=== PATIENT | male | born 1970 ===

== ENCOUNTER 2018-05-03 05:57 | Day surgery (SDC) | payer OTHER ==
[2018-04-27 11:27] VITALS: BMI 29.0
== END 2018-05-03 06:30 | disposition home or self-care (01) ==
LOC: C.SDS 05:57
PROVIDERS: ATTEND Surgery
DX: K40.90 Unilateral inguinal hernia, without obstruction or gangrene, not specified as recurrent (principal); Z53.9 Procedure and treatment not carried out, unspecified reason; K42.9 Umbilical hernia without obstruction or gangrene

== ENCOUNTER 2018-05-10 06:24 | Day surgery (SDC) | payer OTHER ==
[2018-04-27 11:25] VITALS: BMI 29.0
[2018-05-10] MEDS ORDERED: ceFAZolin IV 1 gm in Dextrose 2 GM/100 ML BAG IVPB ONE (07:32)
[2018-05-10] MEDS ORDERED: Bupivacaine 0.25% 20 ML INJ IJ ONE (07:33)
[2018-05-10] MEDS ORDERED: Lidocaine Hydrochloride 15 ML INJ ONE (07:33)
[2018-05-10] MEDS ORDERED: Midazolam 2 MG/2 ML VIAL ONE (07:44)
[2018-05-10] MEDS ORDERED: Propofol 10 mg/ml Inj (20 ML) ONE (07:44)
[2018-05-10] MEDS ORDERED: Rocuronium 10 mg/ml (5 ml) ONE (07:52)
[2018-05-10] MEDS ORDERED: HYDROmorphone 0.5 mg/0.5 ml ISec IVP PRN (10:08)
--- NOTE | 2018-05-10 10:10 | PCM.SURG1 ---
Surgeon's Initial Post Op Note - Surgeon's Notes Surgeon: Dr. Deepa Simental Exterminator Termite: Blaine Amin PGY-3; Shelley Pre-Operative Diagnosis: Left inguinal and umbilical hernia Operative Findings: left indirect inguinal hernia and cord lipoma Post-Operative Diagnosis: left indirect inguinal hernia and cord lipoma Operation Performed: robotic left indirect inguinal hernia repair with mesh Specimen/Specimens Removed: cord lipoma and preperitoneal fat Estimated Blood Loss: EBL {In ML}: 20 Date of Surgery/Procedure: 05/10/18 Time of Surgery/Procedure: 07:45
[2018-05-10] MEDS ORDERED: Oxycodone/Acetaminophen 5/325 mg Tab PO PRN (10:16)
[2018-05-10 10:40] VITALS: O2SAT 100
[2018-05-10 12:21] VITALS: BP 125/70; PULSE 81; RESP 18; TEMP 98
--- NOTE | 2018-05-12 14:53 | PCM.OP ---
Operative Report - Operative Report Date of Surgery/Procedure: 05/10/18 Time of Surgery/Procedure: 08:00 Surgeon: Deepa Simental MD Computer Support Specialist Instructor: Blaine Amin DO (PGY3 resident), Shelley LOZA Anesthesia/Sedation: General endotracheal; 1% lidocaine + 0.25% Marcaine mix local anesthesia Pre-Operative Diagnosis: Recurrent Left inguinal hernia. Obesity. BMI 30 Post-Operative Diagnosis: Recurrent left indirect inguinal hernia. Obesity. BMI 30 Indication for Surgery: 47 year old male who presented to my office with an inguinal hernia on the left which is symptomatic. He had undergone previous open left inguinal hernia repair with mesh by a different surgeon a couple years ago and had peristent pain several months following initial repair. Pre-operative CT scan was performed and showed likely recurrent hernia versus mesh disruption. Further details of HPI in clinical chart. I have reviewed the risks and benefits of inguinal hernia repairs in detail as documented in the clinic chart. Specifically, we have noted the incidence of nerve injury and hernia recurrence, bleeding, bladder or bowel injury, and chronic groin pain. The patient consented to the procedure following these discussions and prior to the operation. Operative Findings: Left indirect inguinal hernia and large cord lipoma Procedure/Operation Description: PROCEDURE PERFORMED 1) Laparoscopic, Robotic Assisted left Inguinal Hernia Repair with mesh (Transabdominal preperitoneal, REDDY procedure, Progrip mesh [id number]). DESCRIPTION OF PROCEDURE: The patient was given a preoperative dose of Ancef 2g 20 minutes before the incision. He was taken to the operating room and placed supine on the operating room table with both arms on padded armboard placed at patients side in neutral position. Sequential compression stockings placed for DVT prophylaxis. Following successful endotracheal intubation, abdominal hair removed with shaver, [place] catheter inserted to decompress the bladder, and upper body warming blanket placed to maintain body temperature. The abdomen was prepped and draped in sterile fashion. A time out was performed prior to incision. An 8mm skin incision was made in the supraumbilical midline. The abdoinal wall was elevated a Veress needle was inserted. Aspiration was negative for fluid or blood and Intra-abdominal confirmation with saline drop and opening abdominal pressures of 3-4mmHg. The abdomen was insufflated with carbon dioxide to pressure of 15mmHg. 5mm 0 degree laparoscope was then inserted and the abdomen was generally inspected and there was not found to be any additional signs of pathology. Two additional 8mm robot working ports were then placed following injection of local anesthesia, 1 in the left upper mid abdomen and the other directly across on the right side at the same level. Once these were inserted, the patient was placed in slight trendelberg. A face protecting foam was placed over the patient's face and the robot was docked to the patient. Robotic instruments were then inserted under direct visualization. A 30 degree robotic camera was inserted in the umbilical port, a fenestrated bipoar grasper was placed in the left lateral port, and monopolar curved scissors placed right medial port, and monopolar cautery in the left abdominal port. The hernia was visualized and found to be lateral to the inferior epigastric vessels. The peritoneum was dissected down from the abdominal wall approximately 4 cm above the hernia defect. A peritoneal flap was created using a combination of blunt and electrocautey dissection posterior to the rectus muscle,from the left umbilicl fold medial to the ASIS laterally. Dissection was carried down inferiorly in midline to pubis and space of retzius dissected. Laterally the space of bogros was dissected to psoas muscle. Identification of the epigastrics was completed and the hernia was noted to be indirect in nature. The hernial sac was gently reduced from the indirect space taking care not to injure or overly dissect the cord structures. The vas and vessels were kept together in natural bed. The edge of the hernial sac was identified and reduced far down off of the cord structures. A large cord lipoma was reduced, excised and sent for pathology. The posterior abdominal wall was further inspected and no evidence of other hernias in the direct or femoral spaces. Once this was completed, a Parietex Progrip inguinal mesh was placed into the preperitoneal space. It was placed over the myopectineal orifice with the inferior edge in front of all peritoneum and covering. The mesh is self- fixating and no tacks were used. Once this was completed, the lower edge of the mesh were ensured to be covering the peritoneal edge. The peritoneal flap was then closed usin running 2-0 v-loack barbed suture. The robot was then undocked from the patient and scrubbed back in at bedside. The ports were removed under direct vision and the abdomen desufflated. The skin incisions were closed with 4-0 monocryl sutures then dermabond applied to skin. Both testes was identified to be within the scrotum at the end of the case. The patient was extubated in the OR without incident and transferred to recovery in stable condition. I was present throughout the entirety of the case. Sponge, needle and instrument c ounts were correct. Estimated Blood Loss: 15mL Complications: none Specimen: left cord lipoma Discharge & Condition: above
== END 2018-05-10 12:36 | disposition home or self-care (01) ==
LOC: C.SDS 06:24
PROVIDERS: ATTEND Surgery
DX: K40.90 Unilateral inguinal hernia, without obstruction or gangrene, not specified as recurrent (principal)
CPT/HCPCS: 49521; 88304; C1781; J0690; J1170; J1885; J2001; J2250; J2405; J2704; J3010; J7120

== ENCOUNTER 2018-10-11 10:37 | Outpatient (CLI) | payer OTHER | END 2018-10-11 10:38 | disposition home or self-care (01) | LOC: C.LAB 10:37 | DX: R94.5 Abnormal results of liver function studies (principal) ==

== ENCOUNTER 2018-10-20 06:46 | Day surgery (SDC) | payer OTHER ==
[2018-10-20 07:22] VITALS: BMI 29.4
[2018-10-20 07:24] VITALS: PULSE 80; RESP 20; TEMP 97.2
[2018-10-20] MEDS ORDERED: Lactated Ringer's 500 ML IV ONE (08:56)
[2018-10-20] MEDS ORDERED: Midazolam 2 MG/2 ML VIAL ONE (08:58)
[2018-10-20] MEDS ORDERED: Propofol 10 mg/ml Inj (20 ML) ONE (08:59)
[2018-10-20] MEDS ORDERED: Lidocaine Hydrochloride 5 ML INJ ONE (08:59)
[2018-10-20] MEDS ORDERED: Lactated Ringer's 500 ML IV SCH (09:00)
[2018-10-20 09:03] VITALS: O2SAT 100
[2018-10-20 09:42] VITALS: BP 136/79
== END 2018-10-20 10:46 | disposition home or self-care (01) ==
LOC: C.ENDO 06:46
PROVIDERS: ATTEND Internal Medicine Gastroenterology
DX: K21.9 Gastro-esophageal reflux disease without esophagitis (principal); K29.70 Gastritis, unspecified, without bleeding; K44.9 Diaphragmatic hernia without obstruction or gangrene
CPT/HCPCS: 43239; 82948; 88300; 88305; J2250; J2704; J7120

== ENCOUNTER 2018-10-29 09:36 | Outpatient (CLI) | payer OTHER | END 2018-10-29 09:37 | disposition home or self-care (01) | LOC: C.USIC 09:36 ==